=== PATIENT | female | born 1970 | race Caucasian/White ===

== ENCOUNTER → 2018-02-18 | Outpatient (CLI) | payer BC ==
[~2018-02-18] MED LIST: ACE500 PO; ALBU8TAB4 PO; AZIT1PAC21 PO; BAC PO; CIPR-214; CYCL10TA29 PO; DIP25 PO; DOXY-179 PO; ESCI5TAB10 PO; GUALA600 PO; IBU800 PO; LEVO750T25 PO; LOR5/325 PO; PANT40TA65 PO; PER PO; PRE20 PO; PROAIRPT IH; SULF-120 PO; TERB250T64 PO
--- NOTE | 2018-02-18 08:45 | RADIOLOGY IMAGING REPORT ---
[place] [facility] [place] Bing Louis : 1970 MR: [id number] V: [id number] EXAM DATE: ORDERING PHYSICIAN: LISHA MENDEZ TECHNOLOGIST: Location: [facility] Patient: Bing Louis : 1970 Visit/Account:[id number] Date of Sevice: 02/18/2018 Exam type: CHEST PA AND LAT History: Bronchitis Comparison: February 04, 2017. Findings: There is peribronchial thickening noted bilaterally. There is also patchy airspace consolidation in the right lung base and small amount linear scarring in the medial left lower lobe. There is no evid ence of pleural effusions. Cardiac silhouette appears mildly enlarged. No evidence of overt pulmona ry edema. There are postsurgical changes lower cervical spine. IMPRESSION: 1. Peribronchial thickening bilaterally consistent with clinical history of bronchitis Patchy airspace consolidation right lung base consistent with developing infiltrate and/or atelectasi s Left basilar scarring Report Dictated By: Sheela Singh MD at 02/18/2018 8:38 AM Report E-Signed By: Sheela Singh MD at 02/18/2018 8:41 AM WSN:[id number]
== END ==
LOC: LAB 07:33
PROVIDERS: ATTEND Family Medicine
DX: J40 Bronchitis, not specified as acute or chronic (principal); R50.9 Fever, unspecified
CPT/HCPCS: 36415; 71046; 82040; 82247; 82310; 82374; 82435; 82565; 82947; 84075; 84132; 84155; 84295; 84450; 84460; 84520; 85027